=== PATIENT | female | born 1995 | race Caucasian/White ===

== ENCOUNTER 2016-03-10 17:59 | Emergency (ER) | payer BC ==
[~2016-03-10] VITALS: Ht 167.6 cm; Wt 77.3 kg
[2016-03-10 18:00] VITALS: TEMP 37.2; Ht 167.6 cm; Wt 77.3 kg
--- NOTE | 2016-03-10 19:23 | DIAGNOSTIC IMAGING REPORT ---
CT OF THE HEAD WITHOUT CONTRAST CLINICAL HISTORY: Fall. COMPARISON STUDY: No previous studies for comparison. CT DOSE: 687.98 mGy.cm TECHNIQUE: Helical axial images of the head were obtained without IV contrast. Automated exposure control was utilized for the study. FINDINGS: No acute intracranial hemorrhage, midline shift or mass effect is present. Ventricular system is normal. The basilar cisterns are patent. There are no extra-axial collections. Mccarthy-white differentiation is maintained. There is no calvarial fracture. Visualized portions of the sinuses and mastoid air cells are clear. IMPRESSION: 1. No acute intracranial findings. 2. No calvarial fracture. Electronically signed by: Harish Barraza M.D. 03/10/2016 7:21 PM Dictated Date/Time: 03/10/2016 7:20 PM
--- NOTE | 2016-03-10 19:34 | EMERGENCY ROOM VISIT NOTE ---
ED Visit Note First contact with patient: 18:04 CHIEF COMPLAINT: Head injury last night HISTORY OF PRESENT ILLNESS: Patient is a 20-year-old white female who presents to the emergency department for evaluation of a head injury that occurred sometime last evening. Patient admits to drinking alcohol. She was dancing on an elevated platform when she fell. She struck the right side of her head. She remembers getting up and was crying. After this, she does not have any recollection of the rest of the evening. Her friends who were with her told her that she did not lose consciousness. They went directly home, and she went to bed. When she woke up, she noted pain in the right side of her head. She also reported a slight, intermittent generalized headache on and off throughout the day. She notes associated ringing in her ears years. She did take Aleve. She denies any numbness, tingling, weakness, difficulty with balance, speech or coordination. No patient changes. She was slightly nauseous but did not vomit. She rates her pain a 7/10. She denies any neck pain. She does note bilateral knee bruising. She denies any prior history of head injuries. She was seen at [facility] and directed to the emergency department for further care and evaluation. REVIEW OF SYSTEMS: Review of systems as per HPI. All other systems reviewed were negative. 10 systems reviewed. PMH: Electronic medical records are reviewed and summarized as above/below. See Problem List. 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 Positive tobacco use, drinks alcohol socially. PHYSICAL EXAM: Vital Signs: Reviewed Nurse's notes. CONSTITUTIONAL: Patient is a well-appearing 20-year-old white female who is awake and alert and seated at the bedside in no acute distress. HEENT: Right-sided scalp hematoma with slight ecchymosis and tenderness to palpation. Pupils equal, round, reactive to light and accommodation. EOMs intact without nystagmus. Sclera are anicteric. Tympanic membranes intact, with normal landmarks. External canals are clear. No hemotympanum or Canales sign. Oral and nasopharynx are clear. No CSF rhinorrhea. Mucous membranes are moist. NECK: Supple, nontender, no lymphadenopathy. Full range of motion. HEART: Regular rate and rhythm, with normal S1 and S2, no murmur or gallop or rub is heard. LUNGS: Breath sounds equal and clear to auscultation without wheezes, rales, or rhonchi heard. SKIN: No lesions or rash, normal skin turgor. EXTREMITIES: No cyanosis, edema, joint tenderness or swelling. No deformity. NEUROLOGICAL: Alert and oriented x4. Cranial nerves 2 through 12, sensation and strength grossly intact. Gait is normal. Patient is able to toe, heel and tandem walk without difficulty. Negative Romberg, and pronator drift. Finger to nose, finger to finger and rapid alternating movements are intact. Immediate , recent and remote memories are intact. Concentration is normal. ED course: The patient was seen and examined as above. She was intoxicated last evening and fell and sustained a right-sided head injury. I did discuss with her performing a head CT and she was in agreement. Head CT does not show any evidence for acute intracranial bleed or skull fracture. At this point, it is unclear whether her symptoms are related to the alcohol intoxication or if she does have a mild concussion. Conservative care measures were discussed. She certainly does not have any evidence for skull fracture or acute intracranial bleed. Head injury instructions were outlined with the patient. She was educated on the worrisome signs or symptoms for which she should return to the emergency department. She was also referred to the [facility] for further care and management if her symptoms are not improving. CT OF THE HEAD WITHOUT CONTRAST CLINICAL HISTORY: Fall. COMPARISON STUDY: No previous studies for comparison. CT DOSE: 687.98 mGy.cm TECHNIQUE: Helical axial images of the head were obtained without IV contrast. Automated exposure control was utilized for the study. FINDINGS: No acute intracranial hemorrhage, midline shift or mass effect is present. Ventricular system is normal. The basilar cisterns are patent. There are no extra-axial collections. Mccarthy-white differentiation is maintained. There is no calvarial fracture. Visualized portions of the sinuses and mastoid air cells are clear. IMPRESSION: 1. No acute intracranial findings. 2. No calvarial fracture. Current/Historical Medications No Active Prescriptions or Reported Meds Allergies Coded Allergies: No Known Allergies (Unverified , 03/10/16) Vital Signs Date Time Temp Pulse Resp B/P Pulse Ox O2 Delivery O2 Flow Rate FiO2 03/10/16 19:52 62 16 104/75 98 Room Air 03/10/16 18:00 37.2 66 20 126/83 98 Room Air Departure Information Impression Primary Impression: Closed head injury Prescriptions No Active Prescriptions or Reported Meds Referrals No Doctor, Assigned (PCP) Patient Instructions My [facility] Additional Instructions CONCUSSION DISCHARGE INSTRUCTIONS: What is a concussion? A concussion is a disturbance in the function of the brain caused by a direct or indirect force to the head. It results in a variety of symptoms like: headache, balance problems, nausea, vomiting, vision problems, hearing problems/ringing, drowsiness, irritability, and/or difficulty concentrating or remembering. A concussion may, or may not involve memory problems or loss of consciousness. Concussion instructions: Stop and stay away from ALL physical activity until you are symptom free from: Headaches Balance problems Feeling "dinged" Poor concentration Drowsy Fatigued Rest and avoid strenuous activities for the next few days. Get 8-10 hours of sleep per night. Limit activities that involve significant concentration and attention during this time to speed your recovery. This includes studying, attending school, playing video games, and heavy reading. Your brain needs to rest. Eat right and eat often. Now is the time to feed your brain. Well balanced diets that avoid high sugar foods, sodas, caffeine, etc. are better for your brain. NO ALCOHOL OR DRUGS! Avoid stimulants like caffeine, red bull, mountain dew, "energy" drinks, etc. Ibuprofen(Motrin, Advil) may be used for fever or pain. Use 600mg every six hours as needed. Take with food. Avoid using more than 2400mg in a 24 hour period. Do not use 2400mg per day for more than three consecutive days without physician direction. Prolonged inappropriate use can lead to stomach upset or ulcers. (AND/OR) Acetaminophen(Tylenol) may be used for fever or pain. Use 1000mg every six hours as needed. Avoid using more than 3000mg in a 24 hour period. Stepwise return to sports for athletes: You may progress to the next step after 24 hours if you are symptom free. If you experience symptoms, you must return to the previous stage and try again after another 24 hours of rest and being symptom free. Best case scenario is full contact game play in 96 hours from the time of injury. Remember repeat concussions are worse than the first. Time invested in recovery will allow for better performance and less downtime in the future. If you have any questions see your review trainer or make an appointment to see one of the team physicians. 1) No activity, complete rest. Once all symptoms have resolved, report to the team physician or review trainer to be cleared to progress to step 2. 2) Start light aerobic exercise, such as walking or stationary cycling, no resistance training permitted. 3) Sport specific exercises. Add light resistance slowly. Go slow to allow your body to readapt. 4) Non-contact full speed practice. 5) Full contact practice and/or game play. FOLLOW UP INSTRUCTIONS: You should have a follow up with S in 3-5 days regarding your injury. POST CONCUSSIVE SYNDROME: Occasionally patients can experience a postconcussive syndrome which includes prolonged headaches and memory difficulties. This may occur over the next several days, weeks or rarely, even months. It is important to have a primary care physician follow-up in order to help if the situation develops. Problems could arise over the next 24 to 48 hours. You should not be left alone and MUST go to the hospital immediately if you: -Have a headache that suddenly gets worse. -Are very drowsy or cannot be woken up from sleep. -Can't recognize people or places. -Have repeated vomiting. -Behave unusually, seemed confused, or start acting irritable. -Have a seizure (arms and legs start jerking uncontrollably). -Have weak or numb arms or legs. -Are unsteady on your feet -Experience slurred speech or difficulty speaking. Problem Qualifiers Primary Impression: Closed head injury Encounter type: initial encounter Qualified Codes: S09.90XA - Unspecified injury of head, initial encounter
[2016-03-10 19:52] VITALS: BP 104/75; PULSE 62; O2SAT 98
== END 2016-03-10 19:53 | disposition home or self-care (01) ==
LOC: C.EDB 18:00 → C.EDD 19:53
DX: S09.90XA Unspecified injury of head, initial encounter (principal); S06.0X0A Concussion without loss of consciousness, initial encounter; W19.XXXA Unspecified fall, initial encounter; F17.200 Nicotine dependence, unspecified, uncomplicated

== ENCOUNTER 2016-12-18 11:36 | Emergency (ER) | payer BC ==
[~2016-12-18] VITALS: Ht 167.6 cm; Wt 68.0 kg
[2016-12-18 11:41] VITALS: TEMP 36.8; Ht 167.6 cm; Wt 68.0 kg
[2016-12-18] MEDS ORDERED: BCPILLS PO (12:16)
[2016-12-18] MEDS ORDERED: IBUP-103 PO (12:16)
[2016-12-18 12:21] LABS: BASO % 0.3 %; BASO ABS # 0.02 K/uL (0-0.2); COMPLETE YES; EOS % 1.5 %; HEMATOCRIT 38.1 % (37-47); IG% 0.2 %; LYMPH % 22.3 %; LYMPH ABS # 1.44 K/uL (1.2-3.4); MEAN CELL VOLUME 84.3 fL (80-100); MEAN CORPUSCULAR HEMOGLOBIN 28.8 pg (25-34); MEAN CORPUSCULAR HGB CONC 34.1 g/dl (32-36); MEAN PLATELET VOLUME 10.7 fL (7.4-10.4); MONO % 6.5 %; NEUT % 69.2 %; PLATELET COUNT 223 K/uL (130-400); RED BLOOD COUNT 4.52 M/uL (4.2-5.4); WHITE BLOOD COUNT 6.46 K/uL (4.8-10.8)
[2016-12-18 12:31] LABS: ALT/SGPT 23 U/L (12-78); AST/SGOT 17 U/L (15-37); BLOOD UREA NITROGEN 7 mg/dl (7-18); BUN/CREATININE RATIO 8.6 (10-20); CALCIUM 8.1 mg/dl (8.5-10.1); CARBON DIOXIDE 25 mmol/L (21-32); CHLORIDE 106 mmol/L (98-107); CREATININE 0.79 mg/dl (0.60-1.20); GLUCOSE 86 mg/dl (70-99); POTASSIUM 3.5 mmol/L (3.5-5.1); SODIUM 137 mmol/L (136-145)
[2016-12-18 12:42] LABS: ALKALINE PHOSPHATASE 39 U/L (45-117)
[2016-12-18 12:45] VITALS: O2SAT 96
--- NOTE | 2016-12-18 13:08 | DIAGNOSTIC IMAGING REPORT ---
CHEST 2 VIEWS ROUTINE CLINICAL HISTORY: palpitations cardiac arrhythmia COMPARISON STUDY: No previous studies for comparison. FINDINGS: The bones soft tissues and hemidiaphragms are normal. The cardiomediastinal silhouette is normal. The lungs are clear. The pulmonary vasculature is normal. IMPRESSION: Negative chest. The above report was generated using voice recognition software. It may contain grammatical, syntax or spelling errors. Electronically signed by: Mitul Gutierrez M.D. 12/18/2016 1:06 PM Dictated Date/Time: 12/18/2016 1:06 PM
[2016-12-18 15:51] VITALS: BP 100/66; PULSE 80; O2SAT 96
--- NOTE | 2016-12-18 16:49 | EMERGENCY ROOM VISIT NOTE ---
History Report prepared by Meka: Sanket Rice Under the Supervision of: Dr. Eleuterio Cesar D.O. First contact with patient: 11:54 Chief Complaint: TACHYCARDIA Stated Complaint: CHEST PAIN, RACING HEART History of Present Illness The patient is a 21 year old female who presents to the Emergency Room with complaints of an episode of heart palpitations occurring one hour ago. She also complains of chest "tightness" which began last night. She was laying in bed watching Netflix when her symptoms initially began. The patient states that she had an episode of near-syncope one hour ago while sitting in the [place]UB on the [facility] following a class. She states that her watch read her heart rate as 180 bpm during this time. She states that she felt nauseous and lightheaded during this episode as well. The patient denies SOB, vomiting, diarrhea weakness, numbness, vaginal discharge, or urinary symptoms. She is a former smoker. She has no history of blood clots. The patient is on control. She denies recent travel. She denies recent antibiotic use. The patient 's LNMP was two weeks ago. She has a history of heart palpitations occurring a few years ago which was thought to be related to dehydration. Source of History: patient Onset: Last night Symptom Intensity: heart rate of 180 bpm Quality: other (palpitations) Timing: other (episode) Associated Symptoms: + chest pain ("tightness"), + nausea, No vomiting, No diarrhea, No urinary symptoms, No weakness, No numbness Note: Additional symptoms: lightheadedness. She denies vaginal discharge. Review of Systems See HPI for pertinent positives & negatives. A total of 10 systems reviewed and were otherwise negative. Past Medical & Surgical Medical Problems: (1) No Known Active Medical Problems Family History No pertinent family history stated. Social History Smoking Status: Former Smoker Occupation Status: [employer] student Current/Historical Medications Scheduled Control Pills ( Control Pills), 1 TAB PO DAILY Ibuprofen Tab (Advil), 400 MG PO DIRECTED Allergies Coded Allergies: No Known Allergies (Unverified , 03/10/16) Physical Exam Vital Signs Date Time Temp Pulse Resp B/P (MAP) Pulse Ox O2 Delivery O2 Flow Rate FiO2 12/18/16 15:51 80 16 100/66 96 12/18/16 14:41 88 17 110/67 98 Room Air 12/18/16 12:47 68 18 109/81 100 Room Air 12/18/16 12:45 96 Room Air 12/18/16 12:33 76 12/18/16 11:41 36.8 77 16 120/86 98 Physical Exam GENERAL: Sitting up in bed, alert, well appearing, well nourished, no distress, non-toxic EYE EXAM: normal conjunctiva. OROPHARYNX: no exudate, no erythema, lips, buccal mucosa, and tongue normal and mucous membranes are moist NECK: supple, no nuchal rigidity, no adenopathy, non-tender LUNGS: Clear to auscultation. Normal chest wall mechanics HEART: no murmurs, S1 normal and S2 normal ABDOMEN: abdomen soft, non-tender, normo-active bowel sounds, no masses, no rebound or guarding. BACK: Back is symmetrical on inspection and there is no deformity, no midline tenderness, no CVA tenderness. SKIN: no rashes and no bruising UPPER EXTREMITIES: upper extremities are grossly normal. LOWER EXTREMITIES: No pitting edema. NEURO EXAM: Normal sensorium, cranial nerves II-XII intact, normal speech, no weakness of arms, no weakness of legs. No drift. Finger to nose intact. Gross sensation intact. Medical Decision & Procedures ER Provider Diagnostic Interpretation: Radiology results as stated below per my review and the radiologist's interpretation: CHEST 2 VIEWS ROUTINE FINDINGS: The bones soft tissues and hemidiaphragms are normal. The cardiomediastinal silhouette is normal. The lungs are clear. The pulmonary vasculature is normal. IMPRESSION: Negative chest. The above report was generated using voice recognition software. It may contain grammatical, syntax or spelling errors. Electronically signed by: Mitul Gutierrez M.D. 12/18/2016 1:06 PM Laboratory Results 12/18/16 11:50 Red Blood Count 4.52, Mean Corpuscular Volume 84.3, Mean Corpuscular Hemoglobin 28.8, Mean Corpuscular Hemoglobin Concent 34.1, Mean Platelet Volume 10.7, Neutrophils (%) (Auto) 69.2, Lymphocytes (%) (Auto) 22.3, Monocytes (%) (Auto) 6.5, Eosinophils (%) (Auto) 1.5, Basophils (%) (Auto) 0.3, Neutrophils # (Auto) 4.47, Lymphocytes # (Auto) 1.44, Monocytes # (Auto) 0.42, Eosinophils # (Auto) 0.10, Basophils # (Auto) 0.02 12/18/16 11:50 Test 12/18/16 11:50 12/18/16 14:45 White Blood Count 6.46 K/uL (4.8-10.8) Red Blood Count 4.52 M/uL (4.2-5.4) Hemoglobin 13.0 g/dL (12.0-16.0) Hematocrit 38.1 % (37-47) Mean Corpuscular Volume 84.3 fL (80-100) Mean Corpuscular Hemoglobin 28.8 pg (25-34) Mean Corpuscular Hemoglobin Concent 34.1 g/dl (32-36) Platelet Count 223 K/uL (130-400) Mean Platelet Volume 10.7 fL (7.4-10.4) Neutrophils (%) (Auto) 69.2 % Lymphocytes (%) (Auto) 22.3 % Monocytes (%) (Auto) 6.5 % Eosinophils (%) (Auto) 1.5 % Basophils (%) (Auto) 0.3 % Neutrophils # (Auto) 4.47 K/uL (1.4-6.5) Lymphocytes # (Auto) 1.44 K/uL (1.2-3.4) Monocytes # (Auto) 0.42 K/uL (0.11-0.59) Eosinophils # (Auto) 0.10 K/uL (0-0.5) Basophils # (Auto) 0.02 K/uL (0-0.2) RDW Standard Deviation 39.8 fL (36.4-46.3) RDW Coefficient of Variation 13.0 % (11.5-14.5) Immature Granulocyte % (Auto) 0.2 % Immature Granulocyte # (Auto) 0.01 K/uL (0.00-0.02) D-Dimer < 190 ug/L FEU (0-500) Anion Gap 6.0 mmol/L (3-11) Est Creatinine Clear Calc Drug Dose 105.4 ml/min Estimated GFR () 124.0 Estimated GFR (Non- 107.0 BUN/Creatinine Ratio 8.6 (10-20) Calcium Level 8.1 mg/dl (8.5-10.1) Magnesium Level 2.0 mg/dl (1.8-2.4) Total Bilirubin 0.4 mg/dl (0.2-1) Direct Bilirubin < 0.1 mg/dl (0-0.2) Aspartate Amino Transf (AST/SGOT) 17 U/L (15-37) Alanine Aminotransferase (ALT/SGPT) 23 U/L (12-78) Alkaline Phosphatase 39 U/L (45-117) Total Protein 6.4 gm/dl (6.4-8.2) Albumin 3.1 gm/dl (3.4-5.0) Thyroid Stimulating Hormone (TSH) 1.040 uIu/ml (0.300-4.500) Troponin I < 0.015 ng/ml (0-0.045) Laboratory results per my review. ECG Indication: palpitations Rate (beats per minute): 65 Rhythm: sinus rhythm Findings: no acute ischemic change, no ectopy, other (Normal axis) ED Course ED COURSE: Vital signs were reviewed and appeared normal. The patients medical record was reviewed The above diagnostic studies were performed and reviewed. ED treatments and interventions as stated above. 1157: The patient was evaluated in room C3. A complete history and physical examination was performed. 1530: Upon reevaluation, the patient is resting comfortably.I discussed my findings with the patient and she understands and agrees with the treatment plan. Based on the patients age, coexisting illnesses, exam and lab findings the decision to treat as an outpatient was made. The patient remained stable while under my care. The patient appeared well at the time of discharge. Medical Decision Differential diagnosis: Etiologies such as premature contractions, electrolyte abnormality, cardiac dysrhythmia, thyroid dysfunction, pulmonary embolism, infection, gastrointestinal, as well as others were entertained. Patient is a 21-year-old female with no significant past medical history the presents to ER for chest pain which is present since last night around 12 AM. She notes she woke up this morning and it was consistent. Pain did worsen prior to arrival around 11. She notes she felt her heart racing at this time. She became anxious and vision almost went black. She did not pass out. Patient denies diabetes, hypertension, hyperlipidemia, CAD, history of sudden at a young age, and smoking. Patient denies swelling of calves, recent trips, history of immobilization or recent surgery, prior history of DVT, hemoptysis, history of malignancy, or history of smoking. Does admit to control. D- dimer was negative. Chest x-ray unremarkable. EKG without signs of ischemia, HCOM, or brugada. Patient was completely neurologically intact. TSH is normal. was negative. With her unremarkable history and benign workup patient was discharged follow-up with S as an outpatient. Discussed with Pt concerning signs and symptoms to watch out for. Pt was instructed to follow up with their PCP and discussed with the patient their option to return to the ED at anytime for persistent or worsening symptoms. The appropriate anticipatory guidance and out-patient management, including indications for return to the emergency department, were explained at length to the patient and understood. Blood Pressure Screening Patient's blood pressure: Normal blood pressure Blood pressure disposition: Did not require urgent referral Impression Primary Impression: Heart palpitations Scribe Attestation The scribe's documentation has been prepared under my direction and personally reviewed by me in its entirety. I confirm that the note above accurately reflects all work, treatment, procedures, and medical decision making performed by me. Departure Information Dispostion Home / Self-Care Referrals No Doctor, Assigned (PCP) Forms HOME CARE DOCUMENTATION FORM, IMPORTANT VISIT INFORMATION, WORK / SCHOOL INSTRUCTIONS Patient Instructions Chest Pain - [facility], ED Palpitations, My [facility] Additional Instructions Please follow up with your primary care doctor or if you are a student, [facility] with in the next 24 hours. Any worsening of your symptoms, please return to the ED immediately. This includes any fevers greater than 100.4, worsening pain, chest pain, shortness breath, persistent nausea, vomiting, unable to eat or drink, or any other concerning signs or symptoms from your standpoint.
== END 2016-12-18 15:50 | disposition home or self-care (01) ==
LOC: C.EDB 11:38 → C.EDC 15:50
DX: R00.2 Palpitations (principal); Z87.891 Personal history of nicotine dependence

== ENCOUNTER 2017-01-02 22:19 | Emergency (ER) | payer BC ==
[~2017-01-02] VITALS: Ht 167.6 cm; Wt 67.8 kg
[~2017-01-02 22:19] MED LIST: BCPILLS PO; IBUP-103 PO
[2017-01-02 22:23] VITALS: TEMP 36.2; Ht 167.6 cm; Wt 67.8 kg
[2017-01-02] MEDS ORDERED: ONDANSETRON INJ 2 MG/ML 2 ML VIAL IV STA (22:41)
[2017-01-02 23:04] VITALS: O2SAT 98
[2017-01-02 23:05] LABS: BASO % 0.5 %; BASO ABS # 0.02 K/uL (0-0.2); COMPLETE YES; EOS % 2.3 %; HEMATOCRIT 35.2 % (37-47); LYMPH % 46.3 %; LYMPH ABS # 1.82 K/uL (1.2-3.4); MEAN CELL VOLUME 83.6 fL (80-100); MEAN CORPUSCULAR HEMOGLOBIN 28.3 pg (25-34); MEAN CORPUSCULAR HGB CONC 33.8 g/dl (32-36); MEAN PLATELET VOLUME 10.2 fL (7.4-10.4); MONO % 8.4 %; NEUT % 42.5 %; PLATELET COUNT 209 K/uL (130-400); RED BLOOD COUNT 4.21 M/uL (4.2-5.4); WHITE BLOOD COUNT 3.93 K/uL (4.8-10.8)
[2017-01-02 23:20] LABS: POINT OF CARE TROPONIN I < 0.030 ng/ml (0-0.045)
[2017-01-02 23:24] LABS: ALT/SGPT 24 U/L (12-78); BLOOD UREA NITROGEN 9 mg/dl (7-18); BUN/CREATININE RATIO 11.6 (10-20); CALCIUM 8.2 mg/dl (8.5-10.1); CARBON DIOXIDE 24 mmol/L (21-32); CHLORIDE 106 mmol/L (98-107); CREATININE 0.76 mg/dl (0.60-1.20); GLUCOSE 113 mg/dl (70-99); MAGNESIUM 1.9 mg/dl (1.8-2.4); POTASSIUM 3.6 mmol/L (3.5-5.1); SODIUM 139 mmol/L (136-145)
[2017-01-02 23:26] LABS: ALKALINE PHOSPHATASE 39 U/L (45-117); AST/SGOT 19 U/L (15-37)
[2017-01-02 23:31] LABS: PREG INTERNAL NEGATIVE QC NEG CLEAR BACKGROUND; PREG INTERNAL POSITIVE QC POS CONTROL LINE
[2017-01-03 00:11] VITALS: BP 118/84; PULSE 68; O2SAT 98
--- NOTE | 2017-01-03 05:53 | EMERGENCY ROOM VISIT NOTE ---
History First contact with patient: 22:34 Chief Complaint: TACHYCARDIA Stated Complaint: CHEST PAIN, FAST HEART RATE, DIZZINESS, NAUSEA Nursing Triage Summary: Pt donated plasma this morning. Pt started to feel her heart racing through the day and felt like she could pass out. Denies pain/SOB/dizziness History of Present Illness The patient is a 21 year old female who presents to the Emergency Room with complaints of heart racing for 20 minutes tonight while in class. Symptoms have resolved. This is her third episode of this. Patient denies chest pain, dyspnea, fever, chills, cough, congestion, syncope, abdominal pain or leg pain or swelling. She has traveled recently. She occasionally smokes. She gave plasma this morning. No prior Holter monitor. Patient denies drug use, heavy alcohol use, stimulant use or excessive caffeine use. Review of Systems See HPI for pertinent positives & negatives. A total of 10 systems reviewed and were otherwise negative. Past Medical/Surgical History Medical Problems: (1) No Known Active Medical Problems Social History Smoking Status: Former Smoker Occupation Status: [employer] student Current/Historical Medications Scheduled Control Pills ( Control Pills), 1 TAB PO DAILY Ibuprofen Tab (Advil), 400 MG PO UD Physical Exam Vital Signs Date Time Temp Pulse Resp B/P (MAP) Pulse Ox O2 Delivery O2 Flow Rate FiO2 01/03/17 00:11 68 18 118/84 98 01/02/17 23:51 68 18 118/84 98 Room Air 01/02/17 23:04 98 Room Air 01/02/17 23:04 98 Room Air 01/02/17 23:01 65 20 122/71 79 121/81 115 126/84 01/02/17 22:41 78 01/02/17 22:23 36.2 81 16 126/84 99 Room Air Physical Exam VITALS: Vitals are noted on the nurse's note and reviewed by myself. Vital signs stable. GENERAL: Pleasant female, in no acute distress, nondiaphoretic, well-developed well-nourished. SKIN: The skin was without rashes, erythema, edema, or bruising. There is no tenting of the skin. Capillary reflex less than 2 seconds. HEAD: Normocephalic atraumatic. EARS: External auditory canals clear, tympanic membranes pearly henry without erythema or effusion bilaterally. EYES: Pupils equal round and reactive to light and accommodation. Conjunctivae without injection, sclerae without icterus. Extraocular movements intact. NOSE: Patent, turbinates without inflammation or discharge. MOUTH: Mucous membranes moist. Pharynx without erythema or exudate. Uvula midline. Airway patent. Tongue does not deviate. NECK: Supple without nuchal rigidity. No lymphadenopathy. No thyromegaly. Cervical spine is nontender. No JVD. HEART: Regular rate and rhythm without murmurs gallops or rubs. LUNGS: Clear to auscultation bilaterally without wheezes, rales or rhonchi. No dullness to percussion. No retractions or accessory muscle use. ABDOMEN: Positive bowel sounds x 4. Normal tympanic percussion. Soft, nontender, without masses or organomegaly. Browne sign negative. No guarding or rebound tenderness. MUSCULOSKELETAL: No muscle atrophy, erythema, or edema noted. NEURO: Patient was alert and oriented to person place and time. Normal sensation to light and sharp touch. No focal neurological deficits. Medical Decision & Procedures Laboratory Results 01/02/17 22:52 Red Blood Count 4.21, Mean Corpuscular Volume 83.6, Mean Corpuscular Hemoglobin 28.3, Mean Corpuscular Hemoglobin Concent 33.8, Mean Platelet Volume 10.2, Neutrophils (%) (Auto) 42.5, Lymphocytes (%) (Auto) 46.3, Monocytes (%) (Auto) 8.4, Eosinophils (%) (Auto) 2.3, Basophils (%) (Auto) 0.5, Neutrophils # (Auto) 1.67, Lymphocytes # (Auto) 1.82, Monocytes # (Auto) 0.33, Eosinophils # (Auto) 0.09, Basophils # (Auto) 0.02 01/02/17 22:52 Test 01/02/17 22:52 01/02/17 22:59 White Blood Count 3.93 K/uL (4.8-10.8) Red Blood Count 4.21 M/uL (4.2-5.4) Hemoglobin 11.9 g/dL (12.0-16.0) Hematocrit 35.2 % (37-47) Mean Corpuscular Volume 83.6 fL (80-100) Mean Corpuscular Hemoglobin 28.3 pg (25-34) Mean Corpuscular Hemoglobin Concent 33.8 g/dl (32-36) Platelet Count 209 K/uL (130-400) Mean Platelet Volume 10.2 fL (7.4-10.4) Neutrophils (%) (Auto) 42.5 % Lymphocytes (%) (Auto) 46.3 % Monocytes (%) (Auto) 8.4 % Eosinophils (%) (Auto) 2.3 % Basophils (%) (Auto) 0.5 % Neutrophils # (Auto) 1.67 K/uL (1.4-6.5) Lymphocytes # (Auto) 1.82 K/uL (1.2-3.4) Monocytes # (Auto) 0.33 K/uL (0.11-0.59) Eosinophils # (Auto) 0.09 K/uL (0-0.5) Basophils # (Auto) 0.02 K/uL (0-0.2) RDW Standard Deviation 38.7 fL (36.4-46.3) RDW Coefficient of Variation 12.8 % (11.5-14.5) Immature Granulocyte % (Auto) 0.0 % Immature Granulocyte # (Auto) 0.00 K/uL (0.00-0.02) Anion Gap 9.0 mmol/L (3-11) Est Creatinine Clear Calc Drug Dose 109.5 ml/min Estimated GFR () 130.0 Estimated GFR (Non- 112.1 BUN/Creatinine Ratio 11.6 (10-20) Calcium Level 8.2 mg/dl (8.5-10.1) Magnesium Level 1.9 mg/dl (1.8-2.4) Total Bilirubin 0.2 mg/dl (0.2-1) Direct Bilirubin < 0.1 mg/dl (0-0.2) Aspartate Amino Transf (AST/SGOT) 19 U/L (15-37) Alanine Aminotransferase (ALT/SGPT) 24 U/L (12-78) Alkaline Phosphatase 39 U/L (45-117) Total Protein 5.9 gm/dl (6.4-8.2) Albumin 2.9 gm/dl (3.4-5.0) Human Chorionic Gonadotropin, Qual NEG (NEG) Bedside D-Dimer 120 ng/mlFEU (0-450) Bedside Troponin I < 0.030 ng/ml (0-0.045) Medications Administered Medications (Trade) Dose Ordered Sig/Cristel Route Start Time Stop Time Status Last Admin Dose Admin Ondansetron HCl (Zofran Inj) 4 mg NOW STAT IV 01/02/17 22:41 01/02/17 22:44 DC 01/02/17 23:06 4 MG ED Course Prior records/ancillary studies reviewed. Triage Nursing notes reviewed. The patient's history was concerning for palpitations. Differential diagnosis: Etiologies such as premature contractions, electrolyte abnormality, cardiac dysrhythmia, thyroid dysfunction, pulmonary embolism, infection, gastrointestinal, as well as others were entertained. Physical examination: Benign as above. ER treatment provided: po fluids On reassessment the patient felt better. Diagnostic interpretation by me: Cardiac monitoring revealed no dysrhythmia. The electrocardiogram was negative for pathologic change. Normal sinus, normal intervals, no acute ST-T wave changes. Impression normal sinus rhythm interpreted by myself The labs revealed euthyroid. Negative hCG. Negative d-dimer Imaging studies: Chest x-ray with no acute consolidation, pneumothorax or free air per my interpretation. This appears to be consistent with palpitations that has now resolved. Patient was advised to get an outpatient Holter monitor with health services. She is advised to rest and stay well-hydrated. Patient was neurovascularly and neurologically intact. She is well-appearing. This is her third episode of palpitations within the past 2 years. Patient denied any drug use or stimulant use. No excessive caffeine use. She is advised to try to the ER immediately for chest pain, prolonged palpitations, worsening signs or symptoms or as needed. By the evaluation outlined above emergent etiologies such as electrolyte abnormality, cardiac dysrhythmia, thyroid dysfunction, pulmonary embolism, infection, as well as others were deemed relatively unlikely. The pt informed about the findings as listed above. All questions were answered and pleased with the treatment. Return instructions were outlined and the patient was discharged in stable condition. Referral: The patient was referred back to their primary care physician/S for follow-up in 2 to 3 days for a recheck of the current condition Case reviewed with my attending Medical Decision As above Medication Reconcilliation Current Medication List: was personally reviewed by me Blood Pressure Screening Patient's blood pressure: Normal blood pressure Impression Primary Impression: Heart palpitations Departure Information Dispostion Home / Self-Care Condition GOOD Referrals [facility] (PCP) Forms WORK / SCHOOL INSTRUCTIONS, HOME CARE DOCUMENTATION FORM, Days off school: 1 School Instructions, IMPORTANT VISIT INFORMATION Patient Instructions My [facility], ED Palpitations Additional Instructions Recommend outpatient Holter monitor for your heart palpitations. Rest and drink plenty of fluids as tolerated. Continue current medications. Avoid strenuous activities and anything that worsens your pain. Resume normal activities once your symptoms resolve. Return to the ER immediately for worsening or persistent racing heart, abdominal pain, vomiting, fevers, chest pains, difficulty breathing, worsening of your condition, or as needed. Follow up with your primary physician/health services in 2-3 days for a recheck of your current condition.
--- NOTE | 2017-01-03 07:07 | DIAGNOSTIC IMAGING REPORT ---
CHEST ONE VIEW PORTABLE CLINICAL HISTORY: 21 years-old Female presenting with CHEST PAIN. TECHNIQUE: Portable upright AP view of the chest was obtained. COMPARISON: 12/18/2016. FINDINGS: Cardiomediastinal silhouette normal. Lungs and pleural spaces clear. Osseous structures normal. Upper abdomen normal. IMPRESSION: 1. No acute cardiopulmonary disease. Electronically signed by: Gustavo Barbosa M.D. 01/03/2017 7:05 AM Dictated Date/Time: 01/03/2017 7:05 AM
== END 2017-01-03 00:13 | disposition home or self-care (01) ==
LOC: C.EDB 22:21 → C.EDA 01-03 00:13
DX: R00.2 Palpitations (principal); Z87.891 Personal history of nicotine dependence; Z79.3 Long term (current) use of hormonal contraceptives; Z79.1 Long term (current) use of non-steroidal anti-inflammatories (NSAID)

== ENCOUNTER → 2017-03-25 | Outpatient (CLI) | payer BC ==
--- NOTE | 2017-03-25 12:56 | ECHOCARDIOGRAM REPORT ---
*NOTICE TO RECEIVING [employer] This information is strictly Confidential and protected under [place] law. [place] law prohibits you from making any further disclosure of this information unless further disclosure is expressly permitted by the written consent of the person to whom it pertains or is authorized by law. A general authorization for the release of medical or other information is not sufficient for this purpose. Hospital accepts no responsibility if the information is made available to any other person, INCLUDING THE PATIENT. Interpretation Summary * Name: RAISA SIMS Study Date: 03/25/2017 09:03 AM BP: 114/53 mmHg * Patient Location: [facility] HR: 53 * : 1995 (M/d/yyyy) Gender: Female Height: 66 in * Age: 21 yrs Ethnicity: [place] Weight: 140 lb * Ordering Physician: Jennie Ruelas * Referring Physician: Jennie Ruelas * Performed By: Kiersten Forrester RCS * * Reason For Study: PALPITATIONS * BSA: 1.7 m2 * -- Conclusions -- * Left ventricular systolic function is normal. * No regional wall motion abnormalities noted. * Ejection Fraction = 60-65%. * No significant valvular pathology. Procedure Details * A complete two-dimensional transthoracic echocardiogram was performed (2D, M-mode, Doppler and color flow Doppler). Left Ventricle * The left ventricle is normal in size. * There is normal left ventricular wall thickness. * Left ventricular systolic function is normal. * Ejection Fraction = 60-65%. * No regional wall motion abnormalities noted. Right Ventricle * The right ventricle is normal size. * The right ventricular systolic function is normal as assessed by tricuspid annular plane systolic excursion (TAPSE) (normal >1.5 cm). Atria * The left atrial size is normal. * Right atrial size is normal. * No ASD detected; PFO is not assessed. Mitral Valve * The mitral valve anatomy is normal. * There is no mitral valve stenosis. * There is trace mitral regurgitation. Tricuspid Valve * The tricuspid valve anatomy is normal. * There is no tricuspid stenosis. * There is trace tricuspid regurgitation. Aortic Valve * The aortic valve is trileaflet. * The aortic valve opens well. * Aortic stenosis is absent. * No aortic regurgitation is present. Pulmonic Valve * The pulmonary valve is not well seen, but the Doppler examination is normal without significant regurgitation or stenosis. Great Vessels * The aortic root is normal size. * The pulmonary artery is not well visualized, but is probably normal size. Pericardium/Pleural * There is no pericardial effusion. Great Vessels * Normal inferior vena cava size and collapsability with sniff indicates a normal right atrial pressure of 3 mmHg MMode 2D Measurements and Calculations IVSd 1.1 cm IVSs 1.6 cm LVIDd 4.3 cm LVIDs 2.8 cm LVPWd 0.75 cm LVPWs 1.3 cm IVS/LVPW 1.5 FS 35.4 % EDV(Teich) 84.4 ml ESV(Teich) 29.4 ml EF(Teich) 65.1 % EDV(cubed) 81.1 ml ESV(cubed) 21.9 ml EF(cubed) 73.0 % % IVS thick 45.5 % % LVPW thick 76.6 % LV mass(C)d 129.4 grams LV mass(C)dI 75.3 grams/m\S\2 LV mass(C)s 138.2 grams LV mass(C)sI 80.4 grams/m\S\2 SV(Teich) 54.9 ml SI(Teich) 32.0 ml/m\S\2 SV(cubed) 59.2 ml SI(cubed) 34.5 ml/m\S\2 Ao root diam 2.7 cm Ao root area 5.8 cm\S\2 LA dimension 2.8 cm LA/Ao 1.0 LVOT diam 2.0 cm LVOT area 3.1 cm\S\2 LVAd ap4 37.1 cm\S\2 LVLd ap4 8.9 cm EDV(MOD-sp4) 123.3 ml EDV(sp4-el) 131.7 ml LVAs ap4 19.9 cm\S\2 LVLs ap4 6.8 cm ESV(MOD-sp4) 47.1 ml ESV(sp4-el) 49.8 ml EF(MOD-sp4) 61.8 % EF(sp4-el) 62.2 % LVAd ap2 32.9 cm\S\2 LVLd ap2 8.1 cm EDV(MOD-sp2) 104.3 ml EDV(sp2-el) 113.3 ml LVAs ap2 22.0 cm\S\2 LVLs ap2 7.6 cm ESV(MOD-sp2) 51.3 ml ESV(sp2-el) 54.3 ml EF(MOD-sp2) 50.9 % EF(sp2-el) 52.1 % LVLd %diff -9.49 % EDV(MOD-bp) 118.6 ml LVLs %diff 10.8 % ESV(MOD-bp) 52.3 ml EF(MOD-bp) 55.9 % SV(MOD-sp4) 76.2 ml SI(MOD-sp4) 44.3 ml/m\S\2 SV(MOD-sp2) 53.1 ml SI(MOD-sp2) 30.9 ml/m\S\2 SV(MOD-bp) 66.2 ml SI(MOD-bp) 38.5 ml/m\S\2 SV(sp4-el) 81.9 ml SI(sp4-el) 47.7 ml/m\S\2 SV(sp2-el) 59.0 ml SI(sp2-el) 34.3 ml/m\S\2 Doppler Measurements and Calculations MV E max mejia 104.1 cm/sec MV A max mejia 26.4 cm/sec MV E/A 3.9 MV P1/2t max mejia 118.6 cm/sec MV P1/2t 113.7 msec MVA(P1/2t) 1.9 cm\S\2 MV dec slope 305.6 cm/sec\S\2 MV dec time 0.28 sec Ao V2 max 128.1 cm/sec Ao max PG 6.6 mmHg Ao max PG (full) 1.3 mmHg POOL(V,A) 2.7 cm\S\2 POOL(V,D) 2.7 cm\S\2 LV V1 max PG 5.2 mmHg LV V1 max 114.3 cm/sec PA V2 max 111.5 cm/sec PA max PG 5.0 mmHg PI max mejia 132.9 cm/sec PI max PG 7.1 mmHg PI dec slope 112.6 cm/sec\S\2 PI P1/2t 345.7 msec TR max mejia 211.2 cm/sec
--- NOTE | 2017-03-25 14:27 | EXERCISE STRESS TEST ---
EXERCISE TREADMILL TEST This stress test is being performed because of complaints of palpitations. The patient exercised for 12 minutes and 9 seconds on a standard [place] protocol attaining 13.6 METS and a peak heart 181 beats per minute (90% predicted maximum). The test was terminated due to fatigue. The patient did not experience chest discomfort. Baseline blood pressure 114/53 and this increased to 139/60 at peak exertion. Baseline EKG shows normal sinus rhythm without abnormalities. Throughout exercise and recovery, the ST segments remained normal. There are no dysrhythmias. CONCLUSIONS: 1. Normal electrocardiogram treadmill test suggesting a low probability of significant coronary artery disease. 2. No exercise induced chest pain. 3. No dysrhythmia.
== END | disposition home or self-care (01) ==
LOC: C.CPL 08:50
PROVIDERS: ATTEND Physician Assistant
DX: R00.2 Palpitations (principal)